=== PATIENT | male | born 1970 | race Caucasian/White ===

== ENCOUNTER 2017-04-11 17:34 | Emergency (ER) | payer OTHER ==
[~2017-04-11 17:34] MED LIST: ALTA2.5 PO; ASAB PO; BRILINTA90 MG PO; DRAMAMINE25 MG PO; HUMALOG U SC; LIPITOR40 PO; LOP25 PO; NEUR600 PO; PRAVAC PO; PROVHFA INH; REMERON30 MG PO; SYN.05 PO
[2017-04-11 18:03] LABS: BASOPHILS 0 %; EOSINOPHILS 1.6 %; EOSINOPHILS ABSOLUTE 0.14 10/3/uL (0.0-0.53); HEMATOCRIT 41.2 % (40.0-51.0); HEMOGLOBIN 14.6 g/dL (13.6-17.8); IMMATURE GRANULOCYTES 0.2 %; IMMATURE GRANULOCYTES ABSOLUTE 0.02 10/3/uL (0.0-0.11); LYMPHOCYTES ABSOLUTE 1.02 10/3/uL (0.67-4.30); MEAN CORPUS HGB CONC 35.4 g/dL (32.0-36.0); MEAN CORPUSCULAR HEMOGLOB 32.2 pg (26.0-34.0); MEAN PLATELET VOLUME 10.2 fL (9.2-13.0); MONOCYTES 7.2 %; MONOCYTES ABSOLUTE 0.61 10/3/uL (0.21-1.20); PLATELET COUNT 103 10/3/uL (150-400); RED CELL COUNT 4.53 10/6/uL (4.7-6.1)
[2017-04-11 18:04] LABS: ER CBC TAT 0 Hrs 08 Mins; MANUAL DIFF NO %; MEAN CORPUSCULAR VOLUME 90.9 fL (80-100); WHITE BLOOD CELLS 8.5 10/3/uL (4.5-10.5)
[2017-04-11 18:07] LABS: PARTIAL THROMBO TIME 26.9 SEC (22.5-37.2)
[2017-04-11 18:08] LABS: PROTIME (NOT ORD) 13.4 SEC (12.0-14.5)
[2017-04-11 18:17] LABS: CALCIUM, SERUM 8.9 MG/DL (8.5-10.4); CHEST PAIN PROFILE TAT 0 Hrs 21 Mins; CHLORIDE, SERUM 97 MMOL/L (96-112); CO2 (CARBON DIOXIDE) 30 MMOL/L (24-34); CREATININE 1.25 MG/DL (0.70-1.30); GFR AFRICAN AMERICAN 79 ML/MIN (>=60); GFR NON AFRICAN AMERICAN 68 ML/MIN (>=60); SODIUM, SERUM 133 MMOL/L (135-148); TROPONIN I <0.02 NG/ML (<0.05)
[2017-04-11 18:18] LABS: BUN (BLOOD UREA NITROGEN) 21 MG/DL (6-23); GLUCOSE, SERUM 391 MG/DL (60-99); POTASSIUM, SERUM 4.6 MMOL/L (3.5-5.3)
[2017-04-11] MEDS ORDERED: NEUR800 PO (22:03)
[2017-04-11] MEDS ORDERED: HUMULIN500CONC SC (22:03)
[2017-04-11] MEDS ORDERED: RANEXA1000 MG PO (22:03)
[2017-04-11] MEDS ORDERED: LOP25 PO (22:03)
[2017-04-11] MEDS ORDERED: PRILO PO (22:04)
[2017-04-11] MEDS ORDERED: ALBUTEROL0.083 % INH (22:04)
[2017-04-11] MEDS ORDERED: ULTRAM50 PO (22:04)
[2017-04-11] MEDS ORDERED: PRAVAC PO (22:05)
[2017-04-11] MEDS ORDERED: FLONASE NAS (22:05)
[2017-04-11] MEDS ORDERED: CARDU2 PO (22:05)
[2017-04-11] MEDS ORDERED: MELATONIN10 M2 PO (22:05)
[2017-04-11] MEDS ORDERED: LEVOTHYROXIN75 MCG PO (22:06)
[2017-07-14] MEDS ORDERED: NITROSTAT0.3 MG SL (12:52)
[2017-07-14] MEDS ORDERED: ALLEGRA180 PO (12:55)
== END 2017-04-12 00:15 | disposition left against medical advice (07) ==
LOC: ER 17:34
PROVIDERS: Emergency Medicine
DX: I20.0 Unstable angina (principal); E11.65 Type 2 diabetes mellitus with hyperglycemia; Z87.891 Personal history of nicotine dependence; I25.2 Old myocardial infarction; I10 Essential (primary) hypertension; Z88.2 Allergy status to sulfonamides; Z88.5 Allergy status to narcotic agent; Z88.8 Allergy status to other drugs, medicaments and biological substances; Z88.0 Allergy status to penicillin; Z79.899 Other long term (current) drug therapy; Z79.4 Long term (current) use of insulin
CPT/HCPCS: 71020; 80048; 83735; 84484; 85025; 85610; 85730; 93005; 96365; 96366; 99285; A9270-GY